=== PATIENT | male | born 1980 | race Caucasian/White ===

== ENCOUNTER 2021-05-05 20:20 | Emergency (ER) | payer OTHER ==
[~2021-05-05] VITALS: Ht 182.9 cm; Wt 72.6 kg
== END 2021-05-05 22:36 | disposition home or self-care (01) ==
LOC: ER 20:20
DX: S01.101A Unspecified open wound of right eyelid and periocular area, initial encounter (principal); Y93.18 Activity, surfing, windsurfing and boogie boarding; Y92.832 Beach as the place of occurrence of the external cause

== ENCOUNTER 2021-05-12 14:00 | Emergency (ER) | payer OTHER ==
[~2021-05-12] VITALS: Ht 182.9 cm; Wt 74.8 kg
== END 2021-05-12 14:35 | disposition home or self-care (01) ==
LOC: ER 14:00
DX: Z48.02 Encounter for removal of sutures (principal)

== ENCOUNTER 2021-06-13 08:00 | Outpatient (CLI) | payer OTHER | END 2021-06-13 08:30 | disposition home or self-care (01) | LOC: PPH VACUNA 08:00 | PROVIDERS: ATTEND Emergency Medicine Pediatric Emergency Medicine | DX: Z23 Encounter for immunization (principal) ==